=== PATIENT | male | born 1950 | race Caucasian/White ===

== ENCOUNTER → 2023-06-16 06:40 | Outpatient (REF) | payer MEDICARE, BC, SELFPAY ==
[2023-06-16 07:34] LABS: % Eosinophils 9.1 % (0-6); % Immature Granulocytes 0.2 % (0-0.5); % Lymphocytes 22.4 % (20.5-51.1); % Monocytes 10.8 % (1.7-9.3); % Neutrophils 56.5 % (42.2-75.2); Absolute Eosinophils 0.4 10^3/uL (0-0.7); Absolute Lymphocytes 0.9 10^3/uL (1.2-3.4); Absolute Monocytes 0.4 10^3/uL (0.1-0.6); Absolute Neutrophils 2.3 10^3/uL (1.4-6.5); Hematocrit 41.7 % (39.0-52.0); Hemoglobin 14.3 g/dL (13.0-18.0); Mean Corp Hgb Conc. 34.3 g/dL (33.0-37.0); Mean Corpuscular Hgb 30.6 pg (27.0-31.0); Mean Corpuscular Volume 89.3 fL (80.0-94.0); Mean Platelet Volume 9.7 fL (7.4-10.4); Nucleated Red Blood Cells % 0 % (-); Platelet Count 245 10^3/uL (130-400); Red Blood Cell Count 4.67 10^6/uL (4.70-6.10); Red Cell Dist. Width 12.6 % (11.5-14.5); White Blood Cell Count 4.1 10^3/uL (4.8-10.8)
[2023-06-16 07:45] LABS: APTT 28.4 Sec (23.4-35.0); INR 1.08; PT 13.8 Sec (11.4-14.6)
[2023-06-16 07:58] LABS: ALT (SGPT) 34 U/L (0-50); AST (SGOT) 31 U/L (17-59); Albumin 4.1 g/dl (3.5-5.0); Alkaline Phosphatase 79 U/L (38-126); Blood Urea Nitrogen 22 mg/dl (9-20); Calcium 9.6 mg/dl (8.4-10.2); Carbon Dioxide 31 mmol/L (22-30); Chloride 104 mmol/L (98-107); Glucose 97 mg/dl (70-99); Potassium 4.5 mmol/L (3.5-5.1); Sodium 139 mmol/L (135-145); Total Bilirubin 0.9 mg/dl (0.2-1.3); Total Protein 6.8 g/dl (6.3-8.2); eGFR > 60.00
== END ==
LOC: REG 06:40
PROVIDERS: ATTENDING PHYSICIAN Nurse Practitioner Adult Health
DX: Z01.818 Encounter for other preprocedural examination (principal); K92.2 Gastrointestinal hemorrhage, unspecified
CPT/HCPCS: 36415; 80053; 85025; 85610; 85730

== ENCOUNTER → 2023-08-12 17:37 | Outpatient (REF) | payer MEDICARE, BC, SELFPAY | LOC: MRI 3T 17:37 | PROVIDERS: ATTENDING PHYSICIAN Internal Medicine Hematology & Oncology; FAMILY PHYSICIAN Internal Medicine | DX: C43.4 Malignant melanoma of scalp and neck (principal) | CPT/HCPCS: 70553; A9575 ==

== ENCOUNTER 2023-12-18 08:44 | Outpatient (RCR) | payer MEDICARE, BC, SELFPAY | END 2023-12-18 23:59 | disposition home or self-care (01) | LOC: RPT 08:44 | PROVIDERS: FAMILY PHYSICIAN Internal Medicine | DX: C43.4 Malignant melanoma of scalp and neck (principal); R26.89 Other abnormalities of gait and mobility | CPT/HCPCS: 97163; 97535 ==

== ENCOUNTER 2024-01-06 14:09 | Outpatient (RCR) | payer MEDICARE, BC, SELFPAY | END 2024-01-06 23:59 | disposition home or self-care (01) | LOC: RPT 14:09 | PROVIDERS: ATTENDING PHYSICIAN Nurse Practitioner Family; FAMILY PHYSICIAN Internal Medicine | DX: C43.4 Malignant melanoma of scalp and neck (principal); R26.89 Other abnormalities of gait and mobility; R26.2 Difficulty in walking, not elsewhere classified; M62.81 Muscle weakness (generalized); R26.81 Unsteadiness on feet | CPT/HCPCS: 97110; 97112; 97530 ==

== ENCOUNTER 2024-02-18 09:15 | Outpatient (RCR) | payer MEDICARE, BC, SELFPAY | END 2024-02-18 23:59 | disposition home or self-care (01) | LOC: RPT 09:15 | PROVIDERS: ATTENDING PHYSICIAN Nurse Practitioner Family; FAMILY PHYSICIAN Internal Medicine | DX: C43.4 Malignant melanoma of scalp and neck (principal); R26.89 Other abnormalities of gait and mobility; R26.2 Difficulty in walking, not elsewhere classified; M62.81 Muscle weakness (generalized) | CPT/HCPCS: 97110; 97112; 97530 ==

== ENCOUNTER 2024-03-17 08:56 | Outpatient (RCR) | payer MEDICARE, BC, SELFPAY | END 2024-03-17 23:59 | disposition home or self-care (01) | LOC: RPT 08:56 | PROVIDERS: ATTENDING PHYSICIAN Nurse Practitioner Family; FAMILY PHYSICIAN Internal Medicine | DX: C43.4 Malignant melanoma of scalp and neck (principal); R26.89 Other abnormalities of gait and mobility; M62.81 Muscle weakness (generalized); Z73.6 Limitation of activities due to disability | CPT/HCPCS: 97110; 97112; 97530 ==

== ENCOUNTER 2024-04-20 09:49 | Outpatient (RCR) | payer MEDICARE, BC, SELFPAY | END 2024-04-20 23:59 | disposition home or self-care (01) | LOC: RPT 09:49 | PROVIDERS: ATTENDING PHYSICIAN Nurse Practitioner Family; FAMILY PHYSICIAN Internal Medicine | DX: C43.4 Malignant melanoma of scalp and neck (principal); R26.89 Other abnormalities of gait and mobility; M62.81 Muscle weakness (generalized); R26.2 Difficulty in walking, not elsewhere classified; Z73.6 Limitation of activities due to disability | CPT/HCPCS: 97110; 97112; 97530 ==

== ENCOUNTER → 2024-04-23 06:25 | Outpatient (REF) | payer MEDICARE, BC, SELFPAY ==
[2024-04-23 07:31] LABS: Urine Albumin Trace (Neg - Trace); Urine Bilirubin Negative (Negative); Urine Character Clear (Clear); Urine Color Yellow; Urine Glucose Negative (Negative); Urine Ketone Negative (Negative); Urine Leukocyte Trace (Negative); Urine Nitrite Negative (Negative); Urine Occult Blood Trace (Negative); Urine Urobilinogen Negative (Neg - 1+)
[2024-04-23 07:46] LABS: % Basophils 1.1 % (0-2); % Eosinophils 12.7 % (0-6); % Immature Granulocytes 0.5 % (0-0.5); % Lymphocytes 13.6 % (20.5-51.1); % Monocytes 12.7 % (1.7-9.3); % Neutrophils 59.4 % (42.2-75.2); Absolute Basophils 0.1 10^3/uL (0-0.2); Absolute Eosinophils 0.8 10^3/uL (0-0.7); Absolute Lymphocytes 0.9 10^3/uL (1.2-3.4); Absolute Monocytes 0.8 10^3/uL (0.1-0.6); Absolute Neutrophils 3.7 10^3/uL (1.4-6.5); Hematocrit 42.9 % (39.0-52.0); Hemoglobin 14.2 g/dL (13.0-18.0); Mean Corp Hgb Conc. 33.1 g/dL (33.0-37.0); Mean Corpuscular Hgb 29.8 pg (27.0-31.0); Mean Corpuscular Volume 89.9 fL (80.0-94.0); Mean Platelet Volume 9.2 fL (7.4-10.4); Nucleated Red Blood Cells % 0 % (-); Platelet Count 300 10^3/uL (130-400); Red Blood Cell Count 4.77 10^6/uL (4.70-6.10); Red Cell Dist. Width 12.8 % (11.5-14.5); White Blood Cell Count 6.2 10^3/uL (4.8-10.8)
[2024-04-23 07:54] LABS: ALT (SGPT) 24 U/L (0-50); AST (SGOT) 28 U/L (17-59); Albumin 3.3 g/dl (3.5-5.0); Alkaline Phosphatase 68 U/L (38-126); Blood Urea Nitrogen 20 mg/dl (9-20); Carbon Dioxide 33 mmol/L (22-30); Chloride 102 mmol/L (98-107); Glucose 85 mg/dl (70-99); HDL Cholesterol 46 mg/dl; LDL Cholesterol, Calculated 88 mg/dl; Potassium 4.3 mmol/L (3.5-5.1); Sodium 137 mmol/L (135-145); Total Bilirubin 0.5 mg/dl (0.2-1.3); Total Cholesterol 156 mg/dl (50-199); Total Protein 5.7 g/dl (6.3-8.2); Triglyceride 112 mg/dl (10-149); Very Low Density Lipoprotein 22 mg/dl (0-30); eGFR > 60.00
[2024-04-23 08:22] LABS: PSA, Total - Screen 4.13 ng/ml (0.0-4.0); Urine Mucus Moderate
[2024-04-23 08:23] LABS: Urine Hyaline Cast 0-2 /LPF (0-2)
[2024-04-23 08:24] LABS: Urine Squamous Cell 0-2 /LPF (Few)
[2024-04-23 08:26] LABS: Urine Calcium Oxalate Crystals Seen
[2024-04-23 08:27] LABS: Urine Red Blood Cell 16-20 /HPF (0-2)
== END ==
LOC: REG 06:25
PROVIDERS: ATTENDING PHYSICIAN Nurse Practitioner Adult Health; FAMILY PHYSICIAN Internal Medicine
DX: N20.0 Calculus of kidney (principal); R97.20 Elevated prostate specific antigen [PSA]; Z00.00 Encounter for general adult medical examination without abnormal findings; E78.2 Mixed hyperlipidemia; Z12.5 Encounter for screening for malignant neoplasm of prostate
CPT/HCPCS: 36415; 80053; 80061; 81003; 81015; 85025; G0103

== ENCOUNTER 2024-05-19 10:20 | Outpatient (RCR) | payer MEDICARE, BC, SELFPAY | END 2024-05-19 23:59 | disposition home or self-care (01) | LOC: RPT 10:20 | PROVIDERS: ATTENDING PHYSICIAN Nurse Practitioner Family; FAMILY PHYSICIAN Internal Medicine | DX: C43.4 Malignant melanoma of scalp and neck (principal); R26.89 Other abnormalities of gait and mobility; M62.81 Muscle weakness (generalized); Z73.6 Limitation of activities due to disability; R26.2 Difficulty in walking, not elsewhere classified | CPT/HCPCS: 97110; 97112; 97140; 97530 ==

== ENCOUNTER 2024-06-09 11:10 | Outpatient (RCR) | payer MEDICARE, BC, SELFPAY | END 2024-06-09 23:59 | disposition home or self-care (01) | LOC: RPT 11:10 | PROVIDERS: ATTENDING PHYSICIAN Nurse Practitioner Family; FAMILY PHYSICIAN Internal Medicine | DX: C43.4 Malignant melanoma of scalp and neck (principal); R26.89 Other abnormalities of gait and mobility; M62.81 Muscle weakness (generalized); R26.2 Difficulty in walking, not elsewhere classified; Z73.6 Limitation of activities due to disability | CPT/HCPCS: 97110; 97112; 97140; 97530 ==

== ENCOUNTER 2024-07-14 09:59 | Outpatient (RCR) | payer BC, SELFPAY | END 2024-07-14 13:40 | disposition home or self-care (01) | LOC: RPT 09:59 | PROVIDERS: ATTENDING PHYSICIAN Nurse Practitioner Family; FAMILY PHYSICIAN Internal Medicine | DX: C43.4 Malignant melanoma of scalp and neck (principal); R26.89 Other abnormalities of gait and mobility; M62.81 Muscle weakness (generalized); R26.2 Difficulty in walking, not elsewhere classified; Z73.6 Limitation of activities due to disability | CPT/HCPCS: 97110; 97112; 97530 ==

== ENCOUNTER → 2024-10-15 06:39 | Outpatient (REF) | payer BC, SELFPAY ==
[2024-10-15 08:06] LABS: % Basophils 1.4 % (0-2); % Eosinophils 20.3 % (0-6); % Immature Granulocytes 0.3 % (0-0.5); % Lymphocytes 13.3 % (20.5-51.1); % Monocytes 11.9 % (1.7-9.3); % Neutrophils 52.8 % (42.2-75.2); Absolute Basophils 0.1 10^3/uL (0-0.2); Absolute Eosinophils 1.2 10^3/uL (0-0.7); Absolute Lymphocytes 0.8 10^3/uL (1.2-3.4); Absolute Monocytes 0.7 10^3/uL (0.1-0.6); Absolute Neutrophils 3.1 10^3/uL (1.4-6.5); Hematocrit 42.5 % (39.0-52.0); Hemoglobin 14.4 g/dL (13.0-18.0); Mean Corp Hgb Conc. 33.9 g/dL (33.0-37.0); Mean Corpuscular Hgb 30.6 pg (27.0-31.0); Mean Corpuscular Volume 90.4 fL (80.0-94.0); Mean Platelet Volume 9.6 fL (7.4-10.4); Nucleated Red Blood Cells % 0 % (-); Platelet Count 269 10^3/uL (130-400); Red Cell Dist. Width 12.4 % (11.5-14.5); White Blood Cell Count 5.8 10^3/uL (4.8-10.8)
[2024-10-15 08:38] LABS: ALT (SGPT) 19 U/L (0-50); AST (SGOT) 26 U/L (17-59); Albumin 3.7 g/dl (3.5-5.0); Alkaline Phosphatase 65 U/L (38-126); Blood Urea Nitrogen 18 mg/dl (9-20); Calcium 9.4 mg/dl (8.4-10.2); Carbon Dioxide 28 mmol/L (22-30); Chloride 108 mmol/L (98-107); Glucose 96 mg/dl (70-99); HDL Cholesterol 38 mg/dl; LDL Cholesterol, Calculated 110 mg/dl; Potassium 4.5 mmol/L (3.5-5.1); Sodium 141 mmol/L (135-145); Total Bilirubin 0.7 mg/dl (0.2-1.3); Total Cholesterol 170 mg/dl (50-199); Total Protein 6.2 g/dl (6.3-8.2); Triglyceride 111 mg/dl (10-149); Very Low Density Lipoprotein 22 mg/dl (0-30); eGFR > 60.00
[2024-10-17 23:31] LABS: PSA Total 4.1 ng/mL (0.0-4.0)
== END ==
LOC: REG 06:39
PROVIDERS: ATTENDING PHYSICIAN Internal Medicine
DX: Z00.00 Encounter for general adult medical examination without abnormal findings (principal); E78.2 Mixed hyperlipidemia; R63.4 Abnormal weight loss; R97.20 Elevated prostate specific antigen [PSA]; Z12.5 Encounter for screening for malignant neoplasm of prostate
CPT/HCPCS: 36415; 80053; 80061; 84153; 84154; 85025

== ENCOUNTER → 2024-11-04 09:05 | Outpatient (REF) | payer OTHER, SELFPAY ==
[2024-11-04 10:58] LABS: Cortisol, Random 5.3 ug/dl
== END ==
LOC: REG 09:05
PROVIDERS: ATTENDING PHYSICIAN Internal Medicine
DX: R53.1 Weakness (principal); Z92.241 Personal history of systemic steroid therapy
CPT/HCPCS: 36415; 82533

== ENCOUNTER → 2024-11-15 07:51 | Outpatient (REF) | payer OTHER, SELFPAY | LOC: EMG 07:51 | PROVIDERS: ATTENDING PHYSICIAN Internal Medicine | DX: R20.0 Anesthesia of skin (principal) | CPT/HCPCS: 95886; 95911 ==

== ENCOUNTER → 2024-12-01 09:42 | Outpatient (REF) | payer OTHER, SELFPAY ==
[2024-12-01 12:04] LABS: Vitamin B12 896 pg/ml (239-931)
== END ==
LOC: REG 09:42
PROVIDERS: ATTENDING PHYSICIAN Internal Medicine
DX: G62.9 Polyneuropathy, unspecified (principal)
CPT/HCPCS: 36415; 82607